=== PATIENT | female | born 1945 | race Caucasian/White ===

== ENCOUNTER 2023-12-16 15:00 | Inpatient (IN) | payer MEDICARE, SELFPAY ==
[2023-12-12 13:02] VITALS: BMI 27.4
[2023-12-16] VITALS (11 sets, daily range): BP systolic 20–148; BP diastolic 55–87; BMI 27.4
[2023-12-16] MEDS: TYLENOL 1000 MG PO (11:37)
[2023-12-16] MEDS: NORMOSOL-R 1000 IV (11:38)
--- NOTE | 2023-12-16 14:35 | SUR.PHASEI ---
Received report from Asia Vyas RN and assumed care of pt.
[2023-12-16] MEDS: D5/0.45%NACL 1000 IV (15:12)
--- NOTE | 2023-12-16 15:40 | PTCARENOTE ---
Pt arrived to [facility] from PACU s/p L simple mastectomy. Pt has surgical bra on with abd pads underneath all C/D/I. L side BRIAN drain, draining serous colored. IVF infusing. Pt placed on bed alarm as she is AAOx2. Pt oriented to call jacobs and room,
bed locked and in lowest position, bed locked and in lowest position.
[2023-12-16] MEDS: LIPITOR 40 MG PO (18:11)
[2023-12-16] MEDS: COLACE PO (19:54)
--- NOTE | 2023-12-16 21:22 | PTCARENOTE ---
report received. aaox2. brigido emptied for 10cc's serous fluid w/ clots @ 2029. bruising w/ moderate swelling noted to left chest wall. pt voided 150cc's yellow urine in bedside commode w/o issue. Will monitor.
[2023-12-16 22:58] LABS: Hemoglobin 13.7 g/dL (12.0-16.0)
--- NOTE | 2023-12-16 23:10 | PTCARENOTE ---
Bruising and swelling increasing to left chest wall. vss. Dr. Valentin notified. h/h and type and screen obtained. Dr. Valentin at bedside. Surgical site reinforced w/ 4x4's and abd's. roman wrap applied, surgical bra reapplied. 1:1 at bedside per md
request. no further instruction at this time. Will monitor.
--- NOTE | 2023-12-16 23:12 | W.PN.UPDATE ---
Update Note
Progress Note Update
Called to see pt for bruising and swelling left mastectomy site. Pt is awake, alert sitting in bed complaining of hunger. VSS Hgb 13.7 Dressing taken down and there is a lateral superior hematoma, but ribs are palpable and there if no drainage or
evidence of expansion. Patient redressed with roman binding and the surgical bra. Will observe over night. No weight bearing LUE. Sitter with patient to cue for safety.
[2023-12-17 03:42] VITALS: BP 120/75
[2023-12-17 05:41] LABS: Hemoglobin 13.3 g/dL (12.0-16.0)
[2023-12-17] MEDS: D5/0.45%NACL 1000 IV (06:24)
[2023-12-17 07:54] VITALS: BP 128/67
[2023-12-17] MEDS: COLACE 100 MG PO ×2 (08:33→19:20)
[2023-12-17] MEDS: THERAGRAN 1 TABLET PO (08:33)
[2023-12-17] MEDS: NORVASC 5 MG PO (08:34)
--- NOTE | 2023-12-17 09:41 | W.PN.UPDATE ---
Update Note
Progress Note Update
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 She was seen last night for swelling and bruising. Mild hematoma, does not require evacuation. Wound redressed. With patient's severe dementia, she cannot
remember what she had performed nor does she comply with non-weight bearing on her LUE. Not sure if her facility can accomodate mcc arrangements. Appreciate discharge planning investigating best placement. She would be cleared to go
today if safe arrangements for her recovery can be made.
[2023-12-17 11:24] VITALS: BP 119/58
[2023-12-17 15:13] VITALS: BP 134/75
[2023-12-17] MEDS: LIPITOR 40 MG PO (17:13)
--- NOTE | 2023-12-17 17:16 | CM ---
CM following re: d/c planning
Chart reviewed
CM met with patient at bedside; also had friend visiting named Christina Carmona who assisted with completing the IA
Christina's contact is [phone] and the patient's guardian is Barbara Champagne [phone]
Pt resides at the [facility] in [place] however the patient may not be able to return
Patient's guardian is looking into possibly admitting the patient to the [facility]; CM will continue to follow
Pt has no previous DME/SNF placement and no recent VN hx
Pt prescriptions are being managed by Malcolm and her PCP-Dr. Shemar Chavez
Discharge is uncertain at this time; however the goal is to secure a bed at a dementia unit
CM will continue to follow patient progress and assist with continued d/c needs as indicated
PLAN; d/c plan is uncertain at this time
[2023-12-17] MEDS: D5/0.45%NACL IV (18:47)
[2023-12-17] MEDS: TYLENOL 650 MG PO (19:21)
[2023-12-17 19:27] VITALS: BP 135/66
[2023-12-17] MEDS: ATIVAN 0.5 MG PO (21:26)
[2023-12-17 23:00] VITALS: BP 130/60
[2023-12-18 07:38] VITALS: BP 141/70
[2023-12-18] MEDS: COLACE 100 MG PO ×2 (08:18→18:59)
[2023-12-18] MEDS: THERAGRAN 1 TABLET PO (08:18)
[2023-12-18] MEDS: NORVASC 5 MG PO (08:18)
[2023-12-18 15:34] VITALS: BP 153/75
--- NOTE | 2023-12-18 16:43 | CM ---
POD #2 L breast mastectomy. Patient with dementia. Questionable if patient can return to [place]. Guardian is attempting to get patient into [facility].
Spoke with Guardian Barbara Champagne Esq. ([phone]) and discussed discharge plan of care. Patient is observation status and has Medicare. Therapy recommends SNF. Explained that patient needs a 3 night inpatient stay under Medicare guidelines.
Barbara is in process of completing application for patient to go to [facility]. She said that patient has the funds to pay privately if a bed is available. This CM will call admissions at [facility] in AM. Referral has been
forwarded.
[2023-12-18] MEDS: LIPITOR 40 MG PO (17:14)
[2023-12-18] MEDS: TYLENOL 650 MG PO (21:21)
[2023-12-18 22:45] VITALS: BP 136/74
--- NOTE | 2023-12-18 23:57 | PTCARENOTE ---
Nurse did 2300 vitals.
[2023-12-19 07:00] VITALS: BP 143/88
[2023-12-19] MEDS: NORVASC 5 MG PO (07:43)
[2023-12-19] MEDS: COLACE 100 MG PO ×2 (07:43→19:58)
[2023-12-19] MEDS: THERAGRAN 1 TABLET PO (07:43)
--- NOTE | 2023-12-19 08:56 | W.PN.UPDATE ---
Update Note
Progress Note Update
I saw the patient yesterday and neglected to write an update note. She continues to try to get out of bed unassisted and to weight bear on her LUE which is contraindicated. She is a continued risk for wound disruption and bleeding due to her
dementia. Awaiting SNF placement for rehab.
--- NOTE | 2023-12-19 15:36 | CM ---
Awaiting [facility] determination for [facility]. Guardian is overseeing care. Patient has the funds and guardian is willing to pay jo if need be.
[2023-12-19 15:37] VITALS: BP 133/89
[2023-12-19] MEDS: LIPITOR 40 MG PO (17:25)
[2023-12-19 23:41] VITALS: BP 128/71
[2023-12-20 07:46] VITALS: BP 156/92
[2023-12-20] MEDS: NORVASC 5 MG PO (08:25)
[2023-12-20] MEDS: COLACE 100 MG PO ×2 (08:25→20:22)
[2023-12-20] MEDS: THERAGRAN 1 TABLET PO (08:25)
--- NOTE | 2023-12-20 10:03 | W.PN.UPDATE ---
Update Note
Progress Note Update
Pt is POD #4 S/P left simple mastectomy for multicentric carcinoma. Spoke with admissions yesterday as her admission was mistakenly listed as HAO and should have been in-patient. Her BP has trended up over the last few readings, so will continue to
monitor. If it stays elevated, will ask hospitalist service to see. Also spoke with her court-appointed guardian Barbara Champagne Esq. who relayed that the patient's assisted living facility, [facility], does not have the staffing to keep the patient safe
in recovery. Additionally, they feel that the patient's dementia has progressed and that she is not a proper candidate for their facility. SNF would have to provide the appropriate staffing or med sitter capability to keep the patient safe as she
has already hurt herself by weight bearing on her left side and causing a hematoma and significant bruising. Fortunately, this is resolving and did not require surgical intervention nor transfusion. Drainage tube to stay in until 24-hr drainage
volume is less than 15cc. Wound will have maximum strength in 8 weeks, 80% by 4wks post op if nutrition is adequate. Patient does have resources and would not require medicaid funding guardian reports. Await appropriate placement for the patient.
[2023-12-20 15:55] VITALS: BP 151/68
[2023-12-20] MEDS: LIPITOR 40 MG PO (17:06)
[2023-12-20 23:15] VITALS: BP 124/84
[2023-12-21 08:03] VITALS: BP 173/99
[2023-12-21] MEDS: COLACE 100 MG PO ×2 (09:13→22:26)
[2023-12-21] MEDS: THERAGRAN 1 TABLET PO (09:14)
[2023-12-21] MEDS: NORVASC 5 MG PO (09:14)
[2023-12-21] MEDS: TYLENOL 650 MG PO (09:16)
--- NOTE | 2023-12-21 15:34 | W.PN.UPDATE ---
Update Note
Progress Note Update
Pt sitting in chair watching tv. Denies any complaints other than boredom and wanting to go 'home'. Wound intact, bruising resolving, drain functioning well and lightening in color. Await appropriate safe discharge.
[2023-12-21 16:05] VITALS: BP 142/73
[2023-12-21] MEDS: LIPITOR 40 MG PO (16:57)
[2023-12-21 22:30] VITALS: BP 123/73
[2023-12-22 07:25] VITALS: BP 147/89
[2023-12-22] MEDS: THERAGRAN 1 TABLET PO (07:50)
[2023-12-22] MEDS: NORVASC 5 MG PO (07:50)
[2023-12-22] MEDS: COLACE 100 MG PO ×2 (07:50→19:45)
--- NOTE | 2023-12-22 12:01 | W.PN.UPDATE ---
Update Note
Progress Note Update
Pt continues to await safe placement.
[2023-12-22 15:24] VITALS: BP 123/80
--- NOTE | 2023-12-22 15:50 | CM ---
Patient is now inpatient. L breast mastectomy. Awaiting response from [facility] for memory care acceptance. Guardian in place and willing to pay for services. Message left for admissions at [facility]. Director out of office until 12/23/23. Voice
message referred to nursing asbestos removal supervisor. Also left message for nursing asbestos removal supervisor for update on possible placement.
[2023-12-22] MEDS: LIPITOR 40 MG PO (17:01)
[2023-12-22 22:49] VITALS: BP 107/64
[2023-12-23 07:37] VITALS: BP 150/75
[2023-12-23] MEDS: COLACE 100 MG PO (08:00)
[2023-12-23] MEDS: THERAGRAN 1 TABLET PO (08:00)
[2023-12-23] MEDS: NORVASC 5 MG PO (08:00)
--- NOTE | 2023-12-23 10:29 | CM ---
Patient seen at bedside. CM called to [facility] and left messages for interm admin as well as admissions. CM also called to admissions person at [facility], and await call back. CM will continue to follow for discharge planning needs.
Plan; Memory Care at [facility] pending bed.
--- NOTE | 2023-12-23 12:27 | CM ---
Addendum entered by Martha Epstein 12/23/23 12:31:
Please call report to [phone]/fax to [phone]
Original Note:
CM spoke at length with Tali and Montse at [facility]. PLan for transfer today to [facility], PASSR sent via all scripts, as well as updated clinicals. Patient will need ambulance due to dementia and IMM reviewed with Barbara Cesar. IMM to be sent via
encription to [email or web address]. CM will update physician and nursing. CM will continue to follow for discharge planning needs.
Plan; transfer to SNF
--- NOTE | 2023-12-23 13:32 | W.PN.UPDATE ---
Update Note
Progress Note Update
Informed that pt has been at [facility] today. Will enter discharge. She should be seen by me next week.
--- NOTE | 2023-12-23 13:39 | W.DS.TRANS ---
DC Summary - [employer]
-
Discharge Instructions:
Sleep Apnea Risk Low
Instructions:
Stand-Alone Forms:
Changes to Home Medications: No
Discharge Medications:
DC Medications w/original date entered in [facility]
Sm Anti-Diarrheal 2 mg PO PRN PRN DIARRHEA 09/15/23
acetaminophen 325 mg capsule (Tylenol) 650 mg PO Q6H PRN PAIN/FEVER 09/15/23
buspirone 7.5 mg tablet 7.5 mg PO TID 09/15/23
lorazepam 0.5 mg tablet 0.5 mg PO TID PRN ANXIETY 09/15/23
menthol 4 % topical gel (Biofreeze (menthol)) 1 applic topical BID 09/15/23
multivitamin 1 tab PO DAILY 09/15/23
ibuprofen 600 mg tablet 600 mg PO Q6H PRN PAIN 11/20/23
amlodipine 5 mg tablet 5 mg PO DAILY 12/12/23
aspirin 81 mg capsule 81 mg PO DAILY 12/12/23
atorvastatin 40 mg tablet 40 mg PO QPM 12/12/23
Home Medication Changes
Pending Results: Yes
Additional Pending Results:
Pathology
[2023-12-23 15:27] VITALS: BP 136/77
[2023-12-23] MEDS: LIPITOR 40 MG PO (17:09)
== END 2023-12-23 17:57 | DRG 582 ==
LOC: 2 SOUTH 15:00
PROVIDERS: ADMITTING PHYSICIAN Surgery
PROC: 0HTU0ZZ Resection of Left Breast, Open Approach (ICD-10-PCS; 2023-12-16)
DX: C50.912 Malignant neoplasm of unspecified site of left female breast (principal); E22.2 Syndrome of inappropriate secretion of antidiuretic hormone; F03.C0 Unspecified dementia, severe, without behavioral disturbance, psychotic disturbance, mood disturbance, and anxiety; I10 Essential (primary) hypertension; E78.5 Hyperlipidemia, unspecified; Z75.1 Person awaiting admission to adequate facility elsewhere; Z79.82 Long term (current) use of aspirin
CPT/HCPCS: 88307; 85014; 85018; 86850; 86900; 86901; 88341; 88342; 88360; 97116; 97163; 97166; 97535; L8000

== ENCOUNTER → 2024-01-29 10:44 | Outpatient (REF) | payer MEDICARE, SELFPAY ==
[2024-01-29 12:02] LABS: % Basophils 0.6 % (0-2); % Eosinophils 4.3 % (0-6); % Immature Granulocytes 0.2 % (0-0.5); % Lymphocytes 33.4 % (20.5-51.1); % Monocytes 9.3 % (1.7-9.3); % Neutrophils 52.2 % (42.2-75.2); Absolute Basophils 0.1 10^3/uL (0-0.2); Absolute Eosinophils 0.4 10^3/uL (0-0.7); Absolute Lymphocytes 2.7 10^3/uL (1.2-3.4); Absolute Monocytes 0.8 10^3/uL (0.1-0.6); Absolute Neutrophils 4.3 10^3/uL (1.4-6.5); Hematocrit 34.2 % (37.0-47.0); Hemoglobin 11.6 g/dL (12.0-16.0); Mean Corp Hgb Conc. 33.9 g/dL (33.0-37.0); Mean Corpuscular Hgb 30.7 pg (27.0-31.0); Mean Corpuscular Volume 90.5 fL (81.0-99.0); Mean Platelet Volume 10.6 fL (7.4-10.4); Nucleated Red Blood Cells % 0 %; Platelet Count 323 10^3/uL (130-400); Red Blood Cell Count 3.78 10^6/uL (4.20-5.40); Red Cell Dist. Width 12.5 % (11.5-14.5); White Blood Cell Count 8.2 10^3/uL (4.8-10.8)
[2024-01-29 14:12] LABS: ALT (SGPT) 17 U/L (0-35); AST (SGOT) 24 U/L (14-36); Albumin 3.7 g/dl (3.5-5.0); Alkaline Phosphatase 83 U/L (38-126); Blood Urea Nitrogen 13 mg/dl (7-17); Carbon Dioxide 27 mmol/L (22-30); Chloride 102 mmol/L (98-107); Glucose 86 mg/dl (70-99); Potassium 4.4 mmol/L (3.5-5.1); Sodium 132 mmol/L (135-145); Total Bilirubin 0.6 mg/dl (0.2-1.3); Total Protein 6.4 g/dl (6.3-8.2); eGFR > 60.00
== END ==
LOC: OLABP 10:44
PROVIDERS: ATTENDING PHYSICIAN Internal Medicine
DX: F03.90 Unspecified dementia, unspecified severity, without behavioral disturbance, psychotic disturbance, mood disturbance, and anxiety (principal)
CPT/HCPCS: 36415; 80053; 85025

== ENCOUNTER → 2024-06-24 11:57 | Outpatient (REF) | payer MEDICARE, SELFPAY ==
[2024-06-24 13:16] LABS: Hematocrit 36.4 % (37.0-47.0); Hemoglobin 12.8 g/dL (12.0-16.0); Mean Corp Hgb Conc. 35.2 g/dL (33.0-37.0); Mean Corpuscular Hgb 30.3 pg (27.0-31.0); Mean Corpuscular Volume 86.1 fL (81.0-99.0); Platelet Count 392 10^3/uL (130-400); Red Blood Cell Count 4.23 10^6/uL (4.20-5.40); Red Cell Dist. Width 12.6 % (11.5-14.5); White Blood Cell Count 7.8 10^3/uL (4.8-10.8)
[2024-06-24 13:28] LABS: ALT (SGPT) 19 U/L (0-35); AST (SGOT) 26 U/L (14-36); Albumin 4.3 g/dl (3.5-5.0); Alkaline Phosphatase 85 U/L (38-126); Blood Urea Nitrogen 10 mg/dl (7-17); Calcium 9.6 mg/dl (8.4-10.2); Carbon Dioxide 25 mmol/L (22-30); Chloride 99 mmol/L (98-107); Glucose 86 mg/dl (70-99); Potassium 4.7 mmol/L (3.5-5.1); Sodium 135 mmol/L (135-145); Total Bilirubin 0.8 mg/dl (0.2-1.3); eGFR > 60.00
[2024-06-24 13:43] LABS: Free T4 1.54 ng/dl (0.78-2.19)
[2024-06-24 13:56] LABS: TSH 3.71 uIU/ml (0.47-4.68)
[2024-06-24 14:10] LABS: Glycohemoglobin (HgbA1c) 5.6 % (4.0-5.6)
== END ==
LOC: OLABPG 11:57
PROVIDERS: ATTENDING PHYSICIAN Internal Medicine
DX: F03.90 Unspecified dementia, unspecified severity, without behavioral disturbance, psychotic disturbance, mood disturbance, and anxiety (principal); R63.2 Polyphagia; E00-E89 Endocrine, nutritional and metabolic diseases; R94.6 Abnormal results of thyroid function studies
CPT/HCPCS: 36415; 80053; 83036; 84439; 84443; 85027

== ENCOUNTER → 2024-07-08 11:19 | Outpatient (REF) | payer MEDICARE, SELFPAY ==
[2024-07-08 12:13] LABS: % Basophils 0.5 % (0-2); % Eosinophils 3.1 % (0-6); % Immature Granulocytes 0.1 % (0-0.5); % Lymphocytes 39.4 % (20.5-51.1); % Monocytes 9.3 % (1.7-9.3); % Neutrophils 47.6 % (42.2-75.2); Absolute Basophils 0.1 10^3/uL (0-0.2); Absolute Eosinophils 0.3 10^3/uL (0-0.7); Absolute Lymphocytes 3.8 10^3/uL (1.2-3.4); Absolute Monocytes 0.9 10^3/uL (0.1-0.6); Absolute Neutrophils 4.6 10^3/uL (1.4-6.5); Hematocrit 37.8 % (37.0-47.0); Hemoglobin 13.3 g/dL (12.0-16.0); Mean Corp Hgb Conc. 35.2 g/dL (33.0-37.0); Mean Corpuscular Hgb 29.8 pg (27.0-31.0); Mean Corpuscular Volume 84.6 fL (81.0-99.0); Mean Platelet Volume 10.2 fL (7.4-10.4); Nucleated Red Blood Cells % 0 %; Platelet Count 417 10^3/uL (130-400); Red Blood Cell Count 4.47 10^6/uL (4.20-5.40); Red Cell Dist. Width 12.8 % (11.5-14.5); White Blood Cell Count 9.7 10^3/uL (4.8-10.8)
[2024-07-08 12:31] LABS: ALT (SGPT) 21 U/L (0-35); AST (SGOT) 27 U/L (14-36); Albumin 4.6 g/dl (3.5-5.0); Alkaline Phosphatase 83 U/L (38-126); Blood Urea Nitrogen 13 mg/dl (7-17); Calcium 9.6 mg/dl (8.4-10.2); Carbon Dioxide 24 mmol/L (22-30); Chloride 97 mmol/L (98-107); Glucose 93 mg/dl (70-99); Potassium 4.2 mmol/L (3.5-5.1); Sodium 135 mmol/L (135-145); Total Bilirubin 0.9 mg/dl (0.2-1.3); Total Protein 7.3 g/dl (6.3-8.2); eGFR > 60.00
[2024-07-08 12:43] LABS: Free T4 1.43 ng/dl (0.78-2.19)
[2024-07-08 12:57] LABS: TSH 3.88 uIU/ml (0.47-4.68)
== END ==
LOC: OLABPG 11:19
PROVIDERS: ATTENDING PHYSICIAN Internal Medicine
DX: R63.1 Polydipsia (principal); R63.2 Polyphagia; Z13.21 Encounter for screening for nutritional disorder; Z13.228 Encounter for screening for other metabolic disorders; C50.919 Malignant neoplasm of unspecified site of unspecified female breast; I10 Essential (primary) hypertension; F03.90 Unspecified dementia, unspecified severity, without behavioral disturbance, psychotic disturbance, mood disturbance, and anxiety
CPT/HCPCS: 36415; 80053; 84439; 84443; 85025

== ENCOUNTER 2024-11-24 12:03 | Emergency (ER) | payer MEDICARE, SELFPAY ==
[2024-11-24 12:07] VITALS: BP 125/69
[2024-11-24 12:09] VITALS: BP 125/69
[2024-11-24 12:11] VITALS: BMI 29.7
--- NOTE | 2024-11-24 12:46 | ED.GENMED ---
History of Present Illness
General
Chief Complaint: Dental Problem
Source: patient and other
Exam Limitations: none
Time Seen by Provider: 11/24/24 12:34
Nursing documentation reviewed up to this point in time: agreed with
History of Present Illness
History of Present Illness:
Patient with history of dementia, presents to ED from [facility] secondary to left facial pain with swelling over the past 2 weeks. Denies fever or chills. Denies nausea or vomiting. Denies difficulty with speaking. Denies difficulty with
swallowing. Denies loss of appetite. Denies trauma. Patient unsure of any toothache.
Review of Systems
Review of Systems
Allergies reviewed?: Yes
All Other Systems: ROS reviewed and negative except as documented in HPI and ROS
Constitutional: Reports no symptoms
EENT: Reports other (facial/mouth pain)
Respiratory: Reports no symptoms
Cardiac: Reports no symptoms
ABD/GI: Reports no symptoms
Musculoskeletal: Reports no symptoms
Skin: Reports no symptoms
Neurological: Reports no symptoms
Phy Exam
Physical Exam
Physical Exam:
Physical Exam
General: mild painful distress, not acutely ill. afebrile
Head: nc/at. eomi
Neck: supple. no meningeal signs. normal posterior pharynx
Heart: s1/s2 regular rate and rhythm, no murmur. equal radial pulses.
Lungs: no acute respiratory distress. clear bilaterally
Abdomen: normal bowel sounds. not tender.
Neuro: alert and oriented x 2. no focal neurological deficits
Skin: left facial swelling noted. swelling/tenderness noted over left buccal surface without open drainage.
Psychiatric: well kept. interactive and cooperative
Extremities: no edema. no calf tenderness.
Course
Orders/Labs/Results
Orders:
Orders
11/24/24 12:44
CT Facial Bones W/ Iv Contrast Urgent
Comment:
Reason For Exam: left maxillary/mandibular swelling w pain
11/24/24 12:45
Acetaminophen [Tylenol] 650 mg PO NOW STA
11/24/24 13:01
Basic Metabolic Panel Urgent
Complete Blood Count/With Diff Urgent
11/24/24 15:43
Amoxicillin 875 mg/Clav 125 mg [Augmentin 875 mg/125 mg] 1 tablet PO NOW STA
Abnormal Lab Results
11/24/24
13:01
WBC 11.6 H 10^3/uL
(4.8-10.8)
Hct 36.7 L %
(37.0-47.0)
Absolute Neuts (auto) 6.8 H 10^3/uL
(1.4-6.5)
Absolute Monos (auto) 1.3 H 10^3/uL
(0.1-0.6)
Monocytes % 10.8 H %
(1.7-9.3)
Sodium 132 L mmol/L
(135-145)
Chloride 97 L mmol/L
(98-107)
Glucose 102 H mg/dl
(70-99)
11/24/24 13:01
11/24/24 13:01
Vital Signs
Initial and Last Documented VS:
Initial Vital Signs
Pulse Ox
96
11/24/24 12:06
Last Documented Vital Signs
Temp Pulse Resp BP Pulse Ox
98.5 F 83 18 125/69 96
11/24/24 12:09 11/24/24 19:04 11/24/24 12:07 11/24/24 12:09 11/24/24 19:04
MDM/Problems Addressed
MDM/Problems Addressed:
CT facial bones report reviewed: No focal abscess noted. However in light of patient's visible swelling, redness, and pain, patient will be with antibiotics, i.e. Augmentin, along with recommendation for PCP follow-up.
*Critical Care Note
Total Time (30-74mins, 75-104mins- exclusive of procedures): Not Applicable
ED Attending Note
-
Portions of this chart may have been created with voice recognition software.� Occasional wrong word or��sound alike� substitutions may have occurred due to the inherent limitations of voice recognition software.
Discharge Plan
Departure
Patient Disposition: Snf/SNF
Date of Disposition: 11/24/24
Time of Disposition: 15:45
Discharge Problem:
Cellulitis, face
Instructions: Cellulitis (skin infection) in adults - ED discharge instructions
Prescriptions:
New
amoxicillin-pot clavulanate 875-125 mg tablet
1 tab PO Q12H Qty: 13 0RF
No Action
lorazepam 0.5 mg Tablet
0.5 mg PO DAILY
atorvastatin 40 mg Tablet
40 mg PO DAILY
amlodipine 5 mg Tablet
5 mg PO DAILY
furosemide 40 mg Tablet
40 mg PO DAILY
acetaminophen 325 mg Tablet
650 mg PO Q6HPRN PRN (Reason: mild pain, fever)
acetaminophen 325 mg Tablet
650 mg PO Q4H PRN (Reason: mild pain)
loperamide [Imodium A-D] 2 mg Tablet
2 mg PO DAILYPRN PRN (Reason: diarrhea)
acetaminophen-codeine 300-15 mg Tablet
1 tab PO Q6HPRN PRN (Reason: severe pain)
Theragen Tablet
1 tab PO DAILY
magnesium hydroxide [Milk of Magnesia] 400 mg/5 mL Suspension
30 ml PO DAILYPRN PRN (Reason: constipation)
bisacodyl [Dulcolax (bisacodyl)] 10 mg Suppository
10 mg TX DAILYPRN PRN (Reason: if MOM ineffective and if no BM by day five)
buspirone 10 mg Tablet
20 mg PO BID
Fleet Enema 19-7 gram/118 mL Enema
118 ml TX DAILYPRN PRN (Reason: constipation)
aspirin 81 mg Tablet,Chewable
81 mg PO DAILY
albuterol sulfate 90 mcg/actuation Hfa Aerosol Inhaler
2 puff INHALATION Q4HPRN PRN (Reason: cough,wheezing,sob)
fluticasone furoate-vilanterol [Breo Ellipta] 100-25 mcg/dose Blister With Device
1 inh INHALATION DAILY
Referrals:
ELMER JAMES, [Family Provider] -
Activity Restrictions/Additional Instructions:
As discussed, you are being discharged back to [facility] for continual care. In ED, CT scan did not reveal focal abscess, but did reveal soft tissue swelling, which will be treated with prescribed antibiotics.
Interventions
Interventions:
*Risk Screen - Suicide Last Done: 11/24/24 12:11
*General Assessment Last Done: 11/24/24 12:10
*Neglect/Abuse Screening Last Done: 11/24/24 12:11
*ED COVID-19 Vaccine History Last Done: 11/24/24 12:16
Discharge Date and Time
Print Language: [id number]
[2024-11-24] MEDS: TYLENOL 650 MG PO (12:59)
[2024-11-24 13:20] LABS: % Basophils 0.6 % (0-2); % Eosinophils 1.7 % (0-6); % Immature Granulocytes 0.3 % (0-0.5); % Lymphocytes 28.4 % (20.5-51.1); % Monocytes 10.8 % (1.7-9.3); % Neutrophils 58.2 % (42.2-75.2); Absolute Basophils 0.1 10^3/uL (0-0.2); Absolute Eosinophils 0.2 10^3/uL (0-0.7); Absolute Lymphocytes 3.3 10^3/uL (1.2-3.4); Absolute Monocytes 1.3 10^3/uL (0.1-0.6); Absolute Neutrophils 6.8 10^3/uL (1.4-6.5); Hematocrit 36.7 % (37.0-47.0); Hemoglobin 12.5 g/dL (12.0-16.0); Mean Corp Hgb Conc. 34.1 g/dL (33.0-37.0); Mean Corpuscular Hgb 29.3 pg (27.0-31.0); Mean Corpuscular Volume 86.2 fL (81.0-99.0); Mean Platelet Volume 9.2 fL (7.4-10.4); Nucleated Red Blood Cells % 0 %; Platelet Count 398 10^3/uL (130-400); Red Blood Cell Count 4.26 10^6/uL (4.20-5.40); Red Cell Dist. Width 13.2 % (11.5-14.5); White Blood Cell Count 11.6 10^3/uL (4.8-10.8)
[2024-11-24 13:35] LABS: Blood Urea Nitrogen 11 mg/dl (7-17); Carbon Dioxide 27 mmol/L (22-30); Chloride 97 mmol/L (98-107); Estimated Creatinine Clearance 61 ml/min; Glucose 102 mg/dl (70-99); Sodium 132 mmol/L (135-145); eGFR > 60.00
[2024-11-24 15:09] VITALS: BP 141/72
[2024-11-24] MEDS: AUGMENTIN 875 MG/125 MG 1 TABLET PO (15:52)
== END 2024-11-24 20:11 ==
LOC: EMR 12:03
PROVIDERS: EMERGENCY PHYSICIAN Emergency Medicine; FAMILY PHYSICIAN Internal Medicine
DX: L03.211 Cellulitis of face (principal); F03.90 Unspecified dementia, unspecified severity, without behavioral disturbance, psychotic disturbance, mood disturbance, and anxiety
CPT/HCPCS: 99284; 70487; 80048; 85025; Q9967

== ENCOUNTER → 2025-06-30 11:18 | Outpatient (REF) | payer MEDICARE, SELFPAY ==
[2025-06-30 12:07] LABS: Hematocrit 38.6 % (37.0-47.0); Hemoglobin 12.9 g/dL (12.0-16.0); Mean Corp Hgb Conc. 33.4 g/dL (33.0-37.0); Mean Corpuscular Volume 86.4 fL (81.0-99.0); Nucleated Red Blood Cells % 0 %; Platelet Count 405 10^3/uL (130-400); Red Cell Dist. Width 13.1 % (11.5-14.5)
[2025-06-30 12:16] LABS: ALT (SGPT) 17 U/L (0-35); AST (SGOT) 22 U/L (14-36); Albumin 4.2 g/dl (3.5-5.0); Alkaline Phosphatase 89 U/L (38-126); Blood Urea Nitrogen 11 mg/dl (7-17); Calcium 9.1 mg/dl (8.4-10.2); Carbon Dioxide 26 mmol/L (22-30); Chloride 101 mmol/L (98-107); Glucose 87 mg/dl (70-99); Potassium 4.4 mmol/L (3.5-5.1); Sodium 134 mmol/L (135-145); Total Protein 7.4 g/dl (6.3-8.2); eGFR > 60.00
[2025-06-30 12:36] LABS: Vitamin D, 25-OH*** 35.1 ng/mL (30-80)
[2025-06-30 13:00] LABS: TSH 4.21 uIU/ml (0.47-4.68)
== END ==
LOC: OLABP 11:18
PROVIDERS: ATTENDING PHYSICIAN Nurse Practitioner Gerontology
DX: F03.90 Unspecified dementia, unspecified severity, without behavioral disturbance, psychotic disturbance, mood disturbance, and anxiety (principal); Z86.39 Personal history of other endocrine, nutritional and metabolic disease; E55.9 Vitamin D deficiency, unspecified
CPT/HCPCS: 36415; 80053; 82306; 84439; 84443; 85025